=== PATIENT | female | born 1965 | race Caucasian/White ===

== ENCOUNTER → 2020-09-28 11:10 | Outpatient (BNVA) | payer BC, SELFPAY | PROVIDERS: Family Provider Family Medicine; PCP Family Medicine; Visit Provider Nurse Practitioner | DX: M25.572 Pain in left ankle and joints of left foot (principal) | CPT/HCPCS: 73610; 73630 ==

== ENCOUNTER → 2020-10-02 09:50 | Outpatient (BNVA) | payer BC, SELFPAY | PROVIDERS: Family Provider Family Medicine; PCP Family Medicine; Visit Provider Family Medicine | DX: Z00.00 Encounter for general adult medical examination without abnormal findings (principal) | CPT/HCPCS: 80053; 85025 ==

== ENCOUNTER 2021-02-21 16:24 | Emergency (ER) | payer OTHER, SELFPAY ==
[2021-02-21 17:24] VITALS: BP 156/104; PULSE 61; RESP 14; TEMP 36.3; O2SAT 98; BMI 29.6
--- NOTE | 2021-02-21 17:42 | ED_ITS ---
HPI - Fall General: Chief Complaint: Fall Stated Complaint: FALL, ANKLE/KNEE/NOSE PAIN Time Seen by Provider: 02/21/21 17:42 History of Present Illness: HPI Narrative: Patient is a 55-year-old female comes to the ED after a fall injury. Patient was walking around the parking lot and tripped falling forward. She says her forehead and nose area hit the pavement. She denies any loss of consciousness. She does have an abrasion on the bridge of her nose. She has some left ankle pain after having a fall as well. She also reports having a superficial abrasion to her right knee after fall but she is still able to ambulate on right knee with no pain. Patient says she has not had a tetanus in over 10 years and would like to get it updated dose today. Associated symptoms-after fall: Denies abdominal pain, chest pain, headache(s), hematuria or neck pain Review of Systems Const: Denies: fever(s), chills or fatigue Eyes: Denies: change in vision or eye discomfort ENMT: Reports: sinus pain (nasal area pain); Denies: throat pain, odynophagia, nasal discharge or nasal congestion Card: Denies: chest pain, palpitations, edema, swelling of feet/ankles, dyspnea on exertion or orthopnea Resp: Denies: dyspnea, productive cough or non-productive cough GI: Denies: abdominal pain, nausea, vomiting, diarrhea, constipation or hematochezia : Denies: flank pain, dysuria or hematuria Musc: Reports: extremity pain (left ankle) and extremity swelling (left ankle); Denies: neck pain or back pain Skin/Breast: Reports: new lesions (abrasion on bridge of nose and right knee); Denies: rash Neuro: Denies: headache(s), numbness in extremities or weakness in extremities PFS ED PFSH: Medical History Anxiety Anxiety disorder Hypertension Social History Smoking and tobacco status: current every day smoker Alcohol intake: never Physical Exam Const: COMMON NORMALS: no acute distress, patient oriented x3, healthy appeari ng and alert GENERAL APPEARANCE: cooperative and comfortable HENMT: COMMON NORMALS: normocephalic HEAD & SCALP: normocephalic; no Araujo's sign and no raccoon eyes NOSE: No nasal discharge present and Abnormal external nose present nasal tenderness and nasal abrasion (On bridge of nose) MOUTH: Normal oral and palatal mucosa present THROAT: posterior oropharynx normal and uvula midline Eye: COMMON NORMALS: Equal, round and reactive pupils present, EOMs intact bilaterally and conjunctivae normal CONJUNCTIVA: Yes conjunctivae normal PUPIL: Yes Equal, round and reactive pupils present Neck/C-Spine: COMMON NORMALS: supple GENERAL: Yes normal visual inspection Resp: COMMON NORMALS: normal respiratory effort, No retractions, No use of accessory muscles and clear to auscultation bilaterally AUSCULTATION: clear to auscultation bilaterally Cardio: COMMON NORMALS: regular rate, regular rhythm, S1 normal heart sound present, S2 normal heart sound present, No gallops present (Cardio), No clicks present (Cardio), No murmurs present (Cardio) and Peripheral pulses 2+ throughout RATE: regular rate RHYTHM: regular rhythm HEART SOUNDS: S1 normal heart sound present and S2 normal heart sound present PERIPHERAL PULSES: Peripheral pulses 2+ throughout GI: COMMON NORMALS: Normal to inspection, nondistended, normoactive bowel sounds present, Soft to palpation, non-tender and no masses PALPATION: Yes Soft to palpation : COMMON NORMALS: Yes no CVA tenderness BLADDER/KIDNEY EXAM: Yes no CVA tenderness Back/Pelvis: COMMON NORMALS: no CVA tenderness Extremity: NARRATIVE EXTREMITY EXAM: Patient has superficial abrasions to right knee. GENERAL: Yes normal exam except as noted LEFT LOWER EXTREMITY: Yes ankle joint Left ankle: Yes inspection (No visible deformity, swelling noted.), Yes palpation (Tenderness over anterior aspect of lateral malleolus.), Yes ROM (Limited due to pain) and Yes neurovascular exam (Intact) Neuro: COMMON NORMALS: patient oriented x3, CN's II-XII intact bilaterally, moves all extremities, no focal motor deficits and no sensory deficits noted SENSORIUM/ORIENTATION: Yes alert SENSORY EXAM: Yes extremities (intact) MOTOR EXAM: 5/5 motor strength present throughout Skin: GENERAL SKIN EXAM: dry skin Course Vital Signs: Vital signs: Vital Signs Temperature 97.4 F L 02/21/21 17:24 Pulse Rate 61 02/21/21 17:24 Respiratory Rate 14 02/21/21 17:24 Blood Pressure 156/104 02/21/21 17:24 Pulse Oximetry 98 02/21/21 17:24 MDM - Fall MDM Narrative: Medical decision making narrative: Patient is a 55-year-old female comes to the ED after having a fall. Patient fell off forward and hit her head on pavement. Denies any loss of consciousness or headache. She has a superficial abrasion to bridge of nose, left ankle pain and swelling and superficial abrasion to right knee. She has some mild nasal tenderness. Neuro exam was normal. Patient's left ankle has some swelling and tenderness over the lateral malleolus. Neurovascular tact. Vital stable. CT of head and face showed no acute findings or fractures. Left ankle x-ray showed no acute fractures or findings. Patient was given updated tetanus while here in the ED. Patient diagnosed with a minor head injury sprain and strain of ankle along with abrasions. She was told to follow-up with her PCP in 7 to 10 days for reevaluation. Patient was told to rest, ice and elevate left ankle to help with symptoms. Return to ED precautions given. Patient understood and agreed with plan. Imaging Data^: Other CT: Attestation: I personally reviewed and interpreted this imaging study as follows: Radiologist's impression: [address] [address] [address] Scan Report Signed Patient: Ele Farrell Unit #: [id number] : 1965 Age/Sex: 55 / F ADM Date: 02/21/21 Loc: ER Room/Bed: Attending Dr: Ordering Provider/Ordering MD: Luis Miguel Delgadillo Date of Service: 02/21/21 Procedure(s): CT facial bones wo con* [id number] Accession Number(s): [id number] Report Number: [id number] PROCEDURE INFORMATION: Exam: CT Maxillofacial Without Contrast Exam date and time: 02/21/2021 5:59 PM Age: 55 years old Clinical indication: Injury or trauma; Fall; Work related; Blunt trauma (contusions or hematomas); Cheek bone and forehead and nose; Bilateral; Additional info: Fall with tenderness to bridge of nose TECHNIQUE: Imaging protocol: Computed tomography images of the face without contrast. Radiation optimization: All CT scans at this facility use at least one of these dose optimization techniques: automated exposure control; mA and/or kV adjustment per patient size (includes targeted exams where dose is matched to clinical indication); or iterative reconstruction. COMPARISON: CT head wo con* [id number] 02/21/2021 6:04 PM RADIATION DOSE METRICS: Total DLP (mGy-cm): 663.45 FINDINGS: Orbital cavity: Orbits are normal. Globes are unremarkable. Bones/joints: No acute fracture. Paranasal sinuses: Normal. No air-fluid levels. Soft tissues: Unremarkable. CT/CT facial bones wo con* [id number] IMPRESSION: No acute findings. Radiation Dose CTDIVOL = (mGy): DLP = 663.45 (mGy-cm) Dictated By: Shen Rodriguez MD Signed By: Shen Rodriguez MD Signed Date/Time: 02/21/211830 DD/ 58 CT Head: Attestation: I personally reviewed and interpreted this imaging study as follows: Radiologist's impression: [address] [address] [address] Scan Report Signed Patient: Ele Farrell Unit #: [id number] : 1965 Age/Sex: 55 / F ADM Date: 02/21/21 Loc: ER Room/Bed: Attending Dr: Ordering Provider/Ordering MD: Luis Miguel Delgadillo Date of Service: 02/21/21 Procedure(s): CT head wo con* [id number] Accession Number(s): [id number] Report Number: [id number] PROCEDURE INFORMATION: Exam: CT Head Without Contrast Exam date and time: 02/21/2021 5:59 PM Age: 55 years old Clinical indication: Injury or trauma; Fall; Work related; Blunt trauma (contusions or hematomas); Additional info: Fall and hit head on hard surface, no loc TECHNIQUE: Imaging protocol: Computed tomography of the head without contrast. Radiation optimization: All CT scans at this facility use at least one of these dose optimization techniques: automated exposure control; mA and/or kV adjustment per patient size (includes targeted exams where dose is matched to clinical indication); or iterative reconstruction. COMPARISON: CT head wo con* [id number] 08/11/2014 5:07 AM RADIATION DOSE METRICS: Total DLP (mGy-cm): 662.65 FINDINGS: Brain: Normal. No hemorrhage. Unremarkable white matter. No mass effect. Cerebral ventricles: No ventriculomegaly. Paranasal sinuses: Visualized sinuses are unremarkable. No fluid levels. Mastoid air cells: Visualized mastoid air cells are well aerated. Bones/joints: Unremarkable. No acute fracture. Soft tissues: Unremarkable. CT/CT head wo con* [id number] IMPRESSION: No acute intracranial abnormality. Radiation Dose CTDIVOL = (mGy): DLP = 662.65 (mGy-cm) Dictated By: Shen Rodriguez MD Signed By: Shen Rodriguez MD Signed Date/Time: 02/21/211827 DD/ 58 Xray Ortho: Attestation: I personally reviewed and interpreted this imaging study as foll ows: Radiologist's impression: [address] [address] XRay Report Signed Patient: Ele Farrell Unit #: [id number] : 1965 Age/Sex: 55 / F ADM Date: 02/21/21 Loc: ER Room/Bed: Attending Dr: Ordering Provider/Ordering MD: Luis Miguel Delgadillo Date of Service: 02/21/21 Procedure(s): XR ankle LT min 3V* [id number] Accession Number(s): [id number] Report Number: [id number] PROCEDURE INFORMATION: Exam: XR Left Ankle Exam date and time: 02/21/2021 5:59 PM Age: 55 years old Clinical indication: Injury or trauma; Fall; Work related; Blunt trauma; Ankle; Left; Additional info: Fall injury with ankle pain TECHNIQUE: Imaging protocol: XR Left ankle. Views: 3 or more views. COMPARISON: No relevant prior studies available. FINDINGS: Bones/joints: Small calcified plantar calcaneal spur. Distal Achilles tendon degenerative calcification. Soft tissues: Normal. XR/XR ankle LT min 3V* [id number] IMPRESSION: 1. Negative for fracture or dislocation 2. Small calcified plantar calcaneal spur. 3. Distal Achilles tendon degenerative calcification. Radiation Dose CTDIVOL = (mGy): DLP = (mGy-cm) Dictated By: Shen Rodriguez MD Signed By: Shen Rodriguez MD Signed Date/Time: 02/21/211828 DD/ 58 Discharge Plan Discharge Patient Disposition: Home Clinical Impression: Sprain and strain of ankle, Abrasion Minor head injury Qualifiers: Encounter type: initial encounter Qualified Code(s): S09.90XA - Unspecified injury of head, initial encounter Condition: Stable Prescriptions: No Action metoprolol tartrate 50 mg tablet See Rx Instructions .ROUTE .COMPLEX Qty: 180 RF: 2 lorazepam 0.5 mg tablet 0.5 mg PO BID PRN (Reason: anxiety) 30 Days Qty: 60 RF: 2 lisinopril-hydrochlorothiazide 20-25 mg tablet See Rx Instructions .ROUTE .COMPLEX Qty: 90 RF: 0 lamotrigine 200 mg tablet See Rx Instructions .ROUTE .COMPLEX Qty: 180 RF: 1 Discharge Orders: Discharge ED (Routine); Ordered 02/21/21 Ordered By: Luis Miguel Delgadillo Referrals: Zully Lagos MD [Primary Care Provider] - Discharge Diet: Regular Discharge Activity: Increase activity as tolerated Patient Instructions: Ankle Sprain (DC), Head Injury (ED), Abrasion (ED) Activity Restrictions/Additional Instructions: Follow-up with medical provider as directed in 7 to 10 days reevaluation. Rest, ice and elevate left ankle to help with symptoms. Use crutches at home to help with ambulation for the next couple days then advance weightbearing and activity on left foot as tolerated. Take [id number] ibuprofen or Tylenol for pain. Return to the ER or your medical provider if condition worsens. Please read and understand discharge instructions. Thank you for choosing [facility] for your healthcare needs today. Please realize this is an emergency room and that we are providing you with a medical screening exam and this may not be complete and all inclusive of all the testing and or work up that you may need to determine your ailment or severity of your illness. It is very important that you follow up as instructed or that you return to the Emergency Department should you have concerns or if your condition changes or worsens in any way. Coding Level of Care Code ED Watch Train [employer] for [employer] Fwd Exam Comprehensive
--- NOTE | 2021-02-21 17:59 | XRR_ITS ---
PROCEDURE INFORMATION: Exam: XR Left Ankle Exam date and time: 02/21/2021 5:59 PM Age: 55 years old Clinical indication: Injury or trauma; Fall; Work related; Blunt trauma; Ankle; Left; Additional info: Fall injury with ankle pain TECHNIQUE: Imaging protocol: XR Left ankle. Views: 3 or more views. COMPARISON: No relevant prior studies available. FINDINGS: Bones/joints: Small calcified plantar calcaneal spur. Distal Achilles tendon degenerative calcification. Soft tissues: Normal. XR/XR ankle LT min 3V* [id number] IMPRESSION: 1. Negative for fracture or dislocation 2. Small calcified plantar calcaneal spur. 3. Distal Achilles tendon degenerative calcification. Radiation Dose CTDIVOL = (mGy): DLP = (mGy-cm)
--- NOTE | 2021-02-21 17:59 | CTR_ITS ---
PROCEDURE INFORMATION: Exam: CT Head Without Contrast Exam date and time: 02/21/2021 5:59 PM Age: 55 years old Clinical indication: Injury or trauma; Fall; Work related; Blunt trauma (contusions or hematomas); Additional info: Fall and hit head on hard surface, no loc TECHNIQUE: Imaging protocol: Computed tomography of the head without contrast. Radiation optimization: All CT scans at this facility use at least one of these dose optimization techniques: automated exposure control; mA and/or kV adjustment per patient size (includes targeted exams where dose is matched to clinical indication); or iterative reconstruction. COMPARISON: CT head wo con* [id number] 08/11/2014 5:07 AM RADIATION DOSE METRICS: Total DLP (mGy-cm): 662.65 FINDINGS: Brain: Normal. No hemorrhage. Unremarkable white matter. No mass effect. Cerebral ventricles: No ventriculomegaly. Paranasal sinuses: Visualized sinuses are unremarkable. No fluid levels. Mastoid air cells: Visualized mastoid air cells are well aerated. Bones/joints: Unremarkable. No acute fracture. Soft tissues: Unremarkable. CT/CT head wo con* [id number] IMPRESSION: No acute intracranial abnormality. Radiation Dose CTDIVOL = (mGy): DLP = 662.65 (mGy-cm)
--- NOTE | 2021-02-21 17:59 | CTR_ITS ---
PROCEDURE INFORMATION: Exam: CT Maxillofacial Without Contrast Exam date and time: 02/21/2021 5:59 PM Age: 55 years old Clinical indication: Injury or trauma; Fall; Work related; Blunt trauma (contusions or hematomas); Cheek bone and forehead and nose; Bilateral; Additional info: Fall with tenderness to bridge of nose TECHNIQUE: Imaging protocol: Computed tomography images of the face without contrast. Radiation optimization: All CT scans at this facility use at least one of these dose optimization techniques: automated exposure control; mA and/or kV adjustment per patient size (includes targeted exams where dose is matched to clinical indication); or iterative reconstruction. COMPARISON: CT head wo con* [id number] 02/21/2021 6:04 PM RADIATION DOSE METRICS: Total DLP (mGy-cm): 663.45 FINDINGS: Orbital cavity: Orbits are normal. Globes are unremarkable. Bones/joints: No acute fracture. Paranasal sinuses: Normal. No air-fluid levels. Soft tissues: Unremarkable. CT/CT facial bones wo con* [id number] IMPRESSION: No acute findings. Radiation Dose CTDIVOL = (mGy): DLP = 663.45 (mGy-cm)
[2021-02-21] MEDS: ibuprofen 800 mg tablet PO (18:38)
[2021-02-21] MEDS: tetanus-dipt-pertussis 0.5 mL SDV IM (18:48)
== END 2021-02-21 18:53 | disposition home or self-care (01) ==
PROVIDERS: Emergency Provider Physician Assistant; PCP Family Medicine
DX: S09.90XA Unspecified injury of head, initial encounter (principal); W18.30XA Fall on same level, unspecified, initial encounter
CPT/HCPCS: 70450; 70486; 73610; 90471; 90715; 99283

== ENCOUNTER → 2021-12-09 09:14 | Outpatient (BNVA) | payer OTHER, SELFPAY | PROVIDERS: PCP Family Medicine; Visit Provider Family Medicine | DX: I10 Essential (primary) hypertension (principal) | CPT/HCPCS: 80048 ==

== ENCOUNTER 2022-06-25 10:44 | Emergency (ER) | payer OTHER, SELFPAY ==
[2022-06-25 10:49] VITALS: BP 120/91; PULSE 59; RESP 19; TEMP 36.6; O2SAT 91
--- NOTE | 2022-06-25 11:00 | PC.NURSE ---
SEIZURE PADS APPLIED TO BED RAILS.
--- NOTE | 2022-06-25 11:34 | CT_ITS ---
WS: [id number] CT HEAD NONCONTRAST HISTORY: AMS TECHNIQUE: Contiguous axial imaging performed through the brain in 2.5 mm imaging. Bone and soft tiss ue windows. Sagittal and coronal reformats reviewed. All CT scans at [facility] use at least one of these dose optimization techniques: automated exposure control; mA and/or kV adjustment per pa tient size (includes targeted exams where dose is matched to clinical indication); or iterative recon struction. DLP: 934.94 mGy.cm COMPARISON: 02/21/2021 No acute intracranial hemorrhage, midline shift or mass effect. Mild atrophy and small vessel ischemic disease. No acute infarct. Ventricles: Normal size with no hydrocephalus. No inferior displacement of cerebellar tonsils. Paranasal sinuses: As visualized are clear. Mastoid air cells: Well pneumatized. Calvarium and scalp: Skull is intact with no soft tissue edema or swelling. CT/CT head wo con* [id number] IMPRESSION: 1. No acute intracranial hemorrhage or edema. 2. Stable since 02/21/2021.
--- NOTE | 2022-06-25 11:35 | ED_ITS ---
HPI - Seizure General: Chief Complaint: Seizure Stated Complaint: seizures Time Seen by Provider: 06/25/22 10:57 Source: family (spouse) Mode of arrival: EMS Limitations: no limitations History of Present Illness: HPI Narrative: This patient was transported to the emergency department from her workplace. History is predominantly obtained from the spouse. Patient has a history of having stress seizures for which she takes Ativan periodically and as needed. Reportedly per she was feeling a little anxious and stressed before work and took one of her Ativan's and then proceeded to go to work. While at work reportedly she had 2 episodes of significant tremulousness and she took 2 additional Ativan at work. was then notified and he came to her workplace and brought her to the emergency department. There was no history of loss of bowel or bladder control falls or injury that either preceded or occurred during her episodes. According to the she has these and has had these in the past when she is stressed or anxious. He states she is rece ntly had a viral illness with some vomiting and diarrhea but according to him she stated that she felt well this morning and wanted to go to work. Patient denies any pain at this time. She tells me that she is thirsty and cold. complaint: possible seizure Witnessed: Yes - by Bystander Seizure History: Yes Place: Work Associated symptoms: Deny chest pain, chills, fever(s) or syncope Review of Systems Const: Denies: fever(s) or chills Card: Denies: chest pain, syncope or pre-syncope GI: Reports: vomiting and diarrhea; Denies: abdominal pain Musc: Denies: back pain or extremity pain Neuro: Reports: seizure-like activity; Denies: headache(s), numbness in extremities or weakness in extremities Psych: Reports: anxiety [facility] ED PFSH: Medical History Anxiety Anxiety disorder Hypertension Social History Smoking and tobacco status: current every day smoker Alcohol intake: never Physical Exam Narrative: EXAM NARRATIVE: The patient sleeping but easily aroused. She is aware of her spouse and calls him by name. She will answer questions in 1 or 2 word responses. She does not appear to have any signs of trauma. Const: COMMON NORMALS: no acute distress, average body habitus and alert ORIENTATION/CONSCIOUSNESS: Yes awake and Yes oriented to person HENMT: COMMON NORMALS: normocephalic, Normal nasal mucous membranes and turbinates present, moist oral mucous membranes, oropharynx normal (No evidence of intraoral injury.) and dentition normal HEAD & SCALP: normocephalic FACE & SINUS: normal facial exam and face symmetric NOSE: Normal nasal mucous membranes and turbinates present Eye: COMMON NORMALS: Equal, round and reactive pupils present, EOMs intact bilaterally and conjunctivae normal CONJUNCTIVA: Yes conjunctivae normal PUPIL: Yes Equal, round and reactive pupils present Neck/C-Spine: COMMON NORMALS: full ROM, no lymphadenopathy, no meningeal signs and No carotid bruits Chest: COMMONS NORMALS: normal inspection of the chest Resp: COMMON NORMALS: normal respiratory effort, No retractions, No use of accessory muscles and clear to auscultation bilaterally AUSCULTATION: clear to auscultation bilaterally Cardio: COMMON NORMALS: regular rate, regular rhythm, No murmurs present (Cardio) and Peripheral pulses 2+ throughout RATE: regular rate RHYTHM: regular rhythm PERIPHERAL PULSES: Peripheral pulses 2+ throughout GI: COMMON NORMALS: Normal to inspection, nondistended, normoactive bowel sounds present and Soft to palpation PALPATION: Yes Soft to palpation : COMMON NORMALS: Yes no CVA tenderness BLADDER/KIDNEY EXAM: Yes no CVA tenderness Back/Pelvis: COMMON NORMALS: no CVA tenderness, thoracic and lumbar spine normal to inspection and no thoracic nor lumbar tenderness Extremity: COMMON NORMALS: normal to inspection, full ROM, capillary refill normal, no calf tenderness and no pedal edema Neuro: FELICIANO COMA SCALE: document GCS findings Feliciano coma scale eye opening: To sound Feliciano coma scale verbal response: Orientated Feliciano coma scale motor response: Obey commands Feliciano coma scale total score: 14 COMMON NORMALS: moves all extremities (She has displays poor effort) and no sensory deficits noted SENSORIUM/ORIENTATION: Yes alert and Yes oriented to person MENINGEAL SIGNS: Yes no meningeal signs Course Reevaluation(s): Reevaluation #1: Patient is now much more alert. She is moving well and moving all extremities with no evidence of diminished effort. She is drinking fluids and communicating in a full and normal voice. Time: 13:12 Reevaluation #2: Repeat examination reveals to be interacting well with her spouse and otherwise no new or focal findings. She desires to be discharged from the hospital at this time. I think this is reasonable plan. Her is very comfortable and again reiterates that this is very similar to episodes that she is experienced in the past. Her mildly low potassium level was repleted while in the emergency department. No evidence of arrhythmias or other concerning findings during her monitoring here. Time: 13:47 Vital Signs: Vital signs: Vital Signs Temperature 97.8 F 06/25/22 10:49 Pulse Rate 59 L 06/25/22 11:39 Respiratory Rate 16 06/25/22 13:27 Blood Pressure 127/77 06/25/22 13:27 Pulse Oximetry 98 06/25/22 13:27 Oxygen Delivery Me thod 06/25/22 11:39 Oxygen Flow Rate 1 06/25/22 11:39 MDM - Seizure MDM Narrative Medical decision making narrative: This patient was transported to the emergency department by her . She apparently has a history of anxiety disorder and what has been given the name of stress seizures by someone in her past whether it was a healthcare clinician or her family etc. its unknown. She apparently had a recent GI viral illness that had improved and returned back to work and apparently had not episode that prompted her to take 1 Ativan prior to work and then 2 Ativan's during work. This was noted to be associated or preceded by one of her stress seizures. She was more tired and less responsive after these 3 doses of Ativan and her subsequently brought her to the emergency department. While in the emergency department she was evaluated to include a nonfocal clinical examination and as well as other additional monitoring and ancillary studies to establish that there was no evidence of arrhythmia, head injury, stroke, noncontrolled seizures etc. Her evaluation in the emergency department is very reassuring. She received IV fluids, continue cardiac monitoring and reevaluation. She steadily improved while in the emergency department and achieved clinical picture which was consistent with her baseline according to her spouse. No evidence of any ongoing emergency medical condition as noted. My gestalt at this point is that she has a chronic anxiety disorder and gets episodes of anxiety which may trigger some of her physical responses but certainly does not sound like she has a generalized seizure disorder based upon my limited evaluation and review of her history. Nonetheless she is clinically stable and desires to be discharged and we will do so with good return precautions. Lab Data 06/25/22 10:50 06/25/22 10:50 Labs: Radiology Impressions Head CT 06/25/22 11:34 IMPRESSION: 1. No acute intracranial hemorrhage or edema. 2. Stable since 02/21/2021. Laboratory Results WBC 7.7 10^3/uL (4.0-10.0) 06/25/22 10:50 RBC 4.70 10^6/uL (4.1-5.3) 06/25/22 10:50 Hgb 14.0 g/dL (11.5-15.3) 06/25/22 10:50 Hct 42.0 % (37.0-47.0) 06/25/22 10:50 MCV 89.4 fl (81-99) 06/25/22 10:50 MCH 29.8 pg (28.0-34.0) 06/25/22 10:50 MCHC 33.3 g/dL (30.0-36.0) 06/25/22 10:50 RDW 13.0 % (12.1-15.1) 06/25/22 10:50 Plt Count 286 10^3/cmm (130-400) 06/25/22 10:50 MPV 10.9 fL (7.4-10.4) H 06/25/22 10:50 Neut % (Auto) 59.2 % 06/25/22 10:50 Lymph % (Auto) 31.2 % 06/25/22 10:50 Turner % (Auto) 6.1 % 06/25/22 10:50 Eos % (Auto) 2.2 % 06/25/22 10:50 Baso % (Auto) 0.9 % 06/25/22 10:50 Neut # (Auto) 4.54 10^3/uL (1.8-7.7) 06/25/22 10:50 Lymph # (Auto) 2.4 10^3/uL (0.8-4.8) 06/25/22 10:50 Turner # (Auto) 0.5 10^3/uL (0.2-0.9) 06/25/22 10:50 Eos # (Auto) 0.2 10^3/uL (0.0-0.8) 06/25/22 10:50 Baso # (Auto) 0.1 10^3/uL (0.0-0.1) 06/25/22 10:50 Nucleated RBC % (auto) 0 % 06/25/22 10:50 Nucleated RBCs # 0.0 /100WBC 06/25/22 10:50 Sodium 138 mmol/L (136-145) 06/25/22 10:50 Potassium 3.3 mmol/L (3.5-5.1) L 06/25/22 10:50 Chloride 100 mmol/L (98-107) 06/25/22 10:50 Carbon Dioxide 22 mmol/L (22-29) 06/25/22 10:50 Anion Gap 19.3 (5-19) H 06/25/22 10:50 BUN 24 mg/dL (6-20) H 06/25/22 10:50 Creatinine 1.2 mg/dL (0.5-0.9) H 06/25/22 10:50 GFR Calculation 46.8 mL/min (90-130) L 06/25/22 10:50 Glucose 130 mg/dL (65-115) H 06/25/22 10:50 POC Glucose 180 mg/dL (70-110) H 06/25/22 11:51 Calculated Osmolality 292 mOsm/kg (285-295) 06/25/22 10:50 Calcium 10.1 mg/dL (8.5-10.5) 06/25/22 10:50 Total Bilirubin 0.4 mg/dL (0.15-1.2) 06/25/22 10:50 AST 15 U/L (0-32) 06/25/22 10:50 ALT 14 U/L (0-33) 06/25/22 10:50 Alkaline Phosphatase 98 U/L (35-105) 06/25/22 10:50 Total Protein 7.8 g/dL (6.6-8.7) 06/25/22 10:50 Albumin 4.5 g/dL (3.5-5.2) 06/25/22 10:50 Globulin 3.3 g/dL (1.3-4.6) 06/25/22 10:50 EKG Data EKG 1: Attestation: I personally reviewed and interpreted this EKG as follows: Interpretation: Contemporaneous review of the EKG reveals a sinus bradycardia 58 bpm. Prolonged VA interval, QRS duration, corrected QTc interval. Consistent with first-degree AV block. Discharge Plan Discharge Patient Disposition: Home Clinical Impression: Anxiety disorder Condition: Stable Prescriptions: No Action lorazepam 0.5 mg tablet 0.5 mg PO BID PRN (Reason: anxiety) 30 Days Qty: 60 4RF lamotrigine 200 mg tablet 200 mg PO BID metoprolol tartrate 50 mg tablet 50 mg PO BID lisinopril-hydrochlorothiazide 20-25 mg tablet 1 tab PO DAILY Discharge Orders: Discharge ED (Routine); Ordered 06/25/22 Ordered By: Rey Galloway Referrals: Zully Lagos MD [Primary Care Provider] - Discharge Diet: Usual diet Discharge Activity: Increase activity as tolerated Patient Instructions: Opioid Safety, Pain Management Activity Restrictions/Additional Instructions: Continue your usual medications. Advance to a regular diet as soon as possible. Make sure you are drinking at least 1 to 2 quarts of water daily. If you develop any new, worsening or other concerning symptoms you are welcome to return to the emergency department anytime otherwise follow-up with your primary care doctor. Stand Alone Forms: Work/School Release Coding Level of Care Code ED Placement Coordinator for Grant Restrepo
[2022-06-25 11:39] VITALS: BP 113/76; PULSE 59; RESP 15; O2SAT 93
[2022-06-25 11:44] LABS: Basophils # 0.1 10^3/uL (0.0-0.1); Basophils % 0.9 %; Eosinophils # 0.2 10^3/uL (0.0-0.8); Eosinophils % 2.2 %; Lymphocytes # 2.4 10^3/uL (0.8-4.8); Lymphocytes % 31.2 %; Mean Corpuscular HGB Conc 33.3 g/dL (30.0-36.0); Mean Corpuscular Hemoglobin 29.8 pg (28.0-34.0); Mean Corpuscular Volume 89.4 fl (81-99); Mean Platelet Volume 10.9 fL (7.4-10.4); Monocytes # 0.5 10^3/uL (0.2-0.9); Monocytes % 6.1 %; Neutrophils # 4.54 10^3/uL (1.8-7.7); Neutrophils % 59.2 %; Nucleated Red Blood Cells % 0 %; Platelet Count 286 10^3/cmm (130-400); White Blood Count 7.7 10^3/uL (4.0-10.0)
--- NOTE | 2022-06-25 11:49 | ECG_ITS ---
[facility] Test Date: 2022-06-25 Pat Name: Ele Farrell Department: Room: Gender: Female Blueprint Reproducer: : 1965 Requested By: Rey Galloway Order Number: [id number] Nacho MD: Jing Gordon M.D. Measurements Intervals [place] Rate: 58 P: 66 FL: 220 QRS: 90 QRSD: 97 T: 70 QT: 439 QTc: 433 Interpretive Statements SINUS BRADYCARDIA WITH FIRST DEGREE AV BLOCK POSSIBLE LEFT ATRIAL ENLARGEMENT [-0.1mV P-WAVE IN V1/V2] Compared to ECG 08/11/2014 05:19:36 First degree AV block now present Sinus rhythm no longer present Electronically Signed On 06-25-2022 14:26:09 NEUROSCIENTIST by Jing Gordon M.D. [email or web address] ([id number]
[2022-06-25 11:55] LABS: Glucose Point of Care 180 mg/dL (70-110)
[2022-06-25 12:07] LABS: Alanine Aminotransferase 14 U/L (0-33); Albumin Level 4.5 g/dL (3.5-5.2); Alkaline Phosphatase 98 U/L (35-105); Anion Gap 19.3 (5-19); Aspartate Amino Transferase 15 U/L (0-32); Blood Urea Nitrogen 24 mg/dL (6-20); Calcium 10.1 mg/dL (8.5-10.5); Carbon Dioxide 22 mmol/L (22-29); Chloride 100 mmol/L (98-107); Globulin 3.3 g/dL (1.3-4.6); Glomerular Filtration Rate 46.8 mL/min (90-130); Glucose 130 mg/dL (65-115); Osmolality Calculated 292 mOsm/kg (285-295); Potassium 3.3 mmol/L (3.5-5.1); Sodium 138 mmol/L (136-145); Total Bilirubin 0.4 mg/dL (0.15-1.2); Total Protein 7.8 g/dL (6.6-8.7)
[2022-06-25] MEDS: potassium chloride ER 20 mEq Tablet PO (13:25)
[2022-06-25 13:27] VITALS: BP 127/77; RESP 16; O2SAT 98
[2022-06-25 14:08] VITALS: BP 121/77; PULSE 61; O2SAT 95
== END 2022-06-25 14:09 | disposition home or self-care (01) ==
PROVIDERS: Emergency Provider Emergency Medicine; PCP Family Medicine
DX: F41.9 Anxiety disorder, unspecified (principal); I10 Essential (primary) hypertension; F17.210 Nicotine dependence, cigarettes, uncomplicated
CPT/HCPCS: 36416; 70450; 80053; 82962; 85025; 93005; 99285

== ENCOUNTER → 2022-12-24 11:10 | Outpatient (BNVA) | payer OTHER, SELFPAY | PROVIDERS: PCP Family Medicine; Visit Provider Nurse Practitioner Family | DX: J06.9 Acute upper respiratory infection, unspecified (principal) | CPT/HCPCS: 87426 ==

== ENCOUNTER 2023-01-01 12:16 | Emergency (ER) | payer OTHER, SELFPAY ==
[2023-01-01] VITALS (26 sets, daily range): BP systolic 125–148; BP diastolic 82–101; PULSE 56–64; RESP 12–20; TEMP 36.7; O2SAT 89–95; BMI 28.9
--- NOTE | 2023-01-01 12:35 | ECG_ITS ---
[facility] Test Date: 2023-01-01 Pat Name: Ele Farrell Department: Room: Gender: Female Chargeback Analyst: : 1965 Requested By: Ellie Barriga Order Number: [id number] Nacho MD: Jing Gordon M.D. Measurements Intervals [place] Rate: 62 P: 47 NM: 213 QRS: 78 QRSD: 92 T: 56 QT: 432 QTc: 440 Interpretive Statements SINUS RHYTHM WITH FIRST DEGREE AV BLOCK POSSIBLE LEFT ATRIAL ENLARGEMENT [-0.1mV P-WAVE IN V1/V2] Compared to ECG 06/25/2022 11:49:13 Sinus bradycardia no longer present Electronically Signed On 01-01-2023 21:23:37 CDT by Jing Gordon M.D. [id number]
[2023-01-01 12:41] LABS: Basophils # 0.1 10^3/uL (0.0-0.1); Basophils % 0.5 %; Eosinophils # 0.2 10^3/uL (0.0-0.8); Eosinophils % 2.2 %; Hematocrit 41.4 % (36-47); Lymphocytes # 2.1 10^3/uL (0.8-4.8); Lymphocytes % 21.5 %; Mean Corpuscular HGB Conc 32.9 g/dL (30-55); Mean Corpuscular Hemoglobin 29.7 pg (27-33); Mean Corpuscular Volume 90.4 fl (85-98); Mean Platelet Volume 10.2 fL (7.4-10.4); Monocytes # 0.4 10^3/uL (0.2-0.9); Monocytes % 3.8 %; Neutrophils % 71.7 %; Nucleated Red Blood Cells % 0 %; Platelet Count 342 10^3/cmm (157-399); Red Blood Count 4.58 10^6/uL (3.85-5.65); White Blood Count 9.63 10^3/uL (3.29-11.43)
--- NOTE | 2023-01-01 12:42 | W.ED.SEIZURE ---
HPI - Seizure General: Chief Complaint: Seizure Stated Complaint: seizure like activity Time Seen by Provider: 01/01/23 12:21 Source: patient and EMS Mode of arrival: EMS Limitations: no limitations History of Present Illness: HPI Narrative: 57-year-old female has a history of seizure disorders along with bipolar she is on Lamictal patient had a possible seizure today lasting a short time had some mild postictal here she will open her eyes and answer questions but then will go back to sleep she denies any headache did not hit her head she has been seen here in the past for her seizures had normal head CT and work-up in the past Seizure History: Yes Associated symptoms: Deny chest pain, chills or fever(s) Review of Systems Const: Denies: fever(s) or chills ENMT: Denies: throat pain or dental pain Card: Denies: chest pain Resp: Denies: dyspnea GI: Denies: abdominal pain, nausea, vomiting or diarrhea Musc: Denies: neck pain or back pain Skin/Breast: Denies: rash Neuro: Reports: seizure-like activity; Denies: headache(s) PFSH ED PFSH: Medical History Anxiety Anxiety disorder Hypertension Social History Smoking and tobacco status: current every day smoker Alcohol intake: never Substance/Drug Use: never Physical Exam Const: COMMON NORMALS: no acute distress, patient oriented x3 and healthy appearing HENMT: COMMON NORMALS: normocephalic and atraumatic HEAD & SCALP: normocephalic and atraumatic Eye: COMMON NORMALS: Equal, round and reactive pupils present and EOMs intact bilaterally PUPIL: Yes Equal, round and reactive pupils present Neck/C-Spine: COMMON NORMALS: full ROM and supple Chest: COMMONS NORMALS: normal inspection of the chest and normal palpation of entire chest wall Resp: COMMON NORMALS: normal respiratory effort, No retractions, No use of accessory muscles and clear to auscultation bilaterally AUSCULTATION: clear to auscultation bilaterally Cardio: COMMON NORMALS: regular rate, regular rhythm and No murmurs present (Cardio) RATE: regular rate RHYTHM: regular rhythm GI: COMMON NORMALS: Normal to inspection, nondistended, normoactive bowel sounds present, Soft to palpation, non-tender and no masses PALPATION: Yes Soft to palpation Extremity: COMMON NORMALS: normal to inspection and full ROM Neuro: COMMON NORMALS: patient oriented x3, moves all extremities and no focal motor deficits Psych: COMMON NORMALS: mental status grossly normal, Normal thought process present and cooperative THOUGHT PROCESS: Normal thought process present Skin: COMMON NORMALS: no rashes or lesions noted and no wounds GENERAL SKIN EXAM: no rashes or lesions noted Course Vital Signs: Vital signs: Vital Signs Temperature 98.0 F 01/01/23 12:23 Pulse Rate 62 01/01/23 14:15 Respiratory Rate 16 01/01/23 14:15 Blood Pressure 130/90 01/01/23 14:25 Pulse Oximetry 91 01/01/23 14:15 Oxygen Delivery Me thod Room Air 01/01/23 14:00 Oxygen Flow Rate 2 01/01/23 13:35 MDM - Seizure MDM Narrative Medical decision making narrative: Patient presents here with possible seizure she has been well-appearing here no seizure-like activity blood work here is normal she is already on Lamictal get her follow-up with neurology she was return if worsening. Lab Data 01/01/23 12:26 01/01/23 12:26 Labs: Laboratory Results WBC 9.63 10^3/uL (3.29-11.43) 01/01/23 12:26 RBC 4.58 10^6/uL (3.85-5.65) 01/01/23 12:26 Hgb 13.60 g/dL (11.27-16.99) 01/01/23 12:26 Hct 41.4 % (36-47) 01/01/23 12:26 MCV 90.4 fl (85-98) 01/01/23 12:26 MCH 29.7 pg (27-33) 01/01/23 12:26 MCHC 32.9 g/dL (30-55) 01/01/23 12:26 RDW 14.0 % (12.1-15.1) 01/01/23 12:26 Plt Count 342 10^3/cmm (157-399) 01/01/23 12:26 MPV 10.2 fL (7.4-10.4) 01/01/23 12:26 Neut % (Auto) 71.7 % 01/01/23 12:26 Lymph % (Auto) 21.5 % 01/01/23 12:26 Henry % (Auto) 3.8 % 01/01/23 12:26 Eos % (Auto) 2.2 % 01/01/23 12:26 Baso % (Auto) 0.5 % 01/01/23 12:26 Neut # (Auto) 6.90 10^3/uL (1.8-7.7) 01/01/23 12:26 Lymph # (Auto) 2.1 10^3/uL (0.8-4.8) 01/01/23 12:26 Henry # (Auto) 0.4 10^3/uL (0.2-0.9) 01/01/23 12:26 Eos # (Auto) 0.2 10^3/uL (0.0-0.8) 01/01/23 12:26 Baso # (Auto) 0.1 10^3/uL (0.0-0.1) 01/01/23 12:26 Nucleated RBC % (auto) 0 % 01/01/23 12:26 Nucleated RBCs # 0.0 /100WBC 01/01/23 12:26 Sodium 138 mmol/L (136-145) 01/01/23 12:26 Potassium 3.5 mmol/L (3.5-5.1) 01/01/23 12:26 Chloride 101 mmol/L (98-107) 01/01/23 12:26 Carbon Dioxide 23 mmol/L (22-29) 01/01/23 12:26 Anion Gap 17.5 (5-19) 01/01/23 12:26 BUN 13 mg/dL (6-20) 01/01/23 12:26 Creatinine 0.8 mg/dL (0.5-0.9) 01/01/23 12:26 GFR Calculation 74.5 mL/min (90-130) L 01/01/23 12:26 Glucose 150 mg/dL (65-115) H 01/01/23 12:26 Calculated Osmolality 289 mOsm/kg (285-295) 01/01/23 12:26 Calcium 9.5 mg/dL (8.5-10.5) 01/01/23 12:26 Total Bilirubin 0.4 mg/dL (0.15-1.2) 01/01/23 12:26 AST 11 U/L (0-32) 01/01/23 12:26 ALT 12 U/L (0-33) 01/01/23 12:26 Alkaline Phosphatase 95 U/L (35-105) 01/01/23 12:26 Total Protein 7.9 g/dL (6.6-8.7) 01/01/23 12:26 Albumin 4.5 g/dL (3.5-5.2) 01/01/23 12:26 Globulin 3.4 g/dL (1.3-4.6) 01/01/23 12:26 EKG Data EKG 1: Attestation: I personally reviewed and interpreted this EKG as follows: EKG interpretation date: 01/01/23 EKG interpretation time: 12:40 Interpretation: nsr hr [address] or twave abnormalities qrs 92 qtc 437 Discharge Plan Discharge Patient Disposition: Home Clinical Impression: Generalized seizure Condition: Stable Prescriptions: No Action lorazepam 0.5 mg tablet 0.5 mg PO BID PRN (Reason: anxiety) 30 Days Qty: 60 4RF lamotrigine 200 mg tablet 200 mg PO BID metoprolol tartrate 50 mg tablet 50 mg PO BID lisinopril-hydrochlorothiazide 20-25 mg tablet 1 tab PO DAILY Discharge Orders: Discharge ED (Routine); Ordered 01/01/23 Ordered By: Ellie Barriga Referrals: Sarah Araya MD [Physician] - 1-3 days Zully Lagos MD [Primary Care Provider] - Discharge Diet: Advance as tolerated Discharge Activity: Resume usual activity Patient Instructions: Recurrent Seizures in Adults (ED) Stand Alone Forms: Work/School Release Coding Level of Care Code ED Manager Clinical Applications for Chg Kyae
[2023-01-01 12:58] LABS: Alanine Aminotransferase 12 U/L (0-33); Albumin Level 4.5 g/dL (3.5-5.2); Alkaline Phosphatase 95 U/L (35-105); Anion Gap 17.5 (5-19); Aspartate Amino Transferase 11 U/L (0-32); Blood Urea Nitrogen 13 mg/dL (6-20); Calcium 9.5 mg/dL (8.5-10.5); Carbon Dioxide 23 mmol/L (22-29); Chloride 101 mmol/L (98-107); Globulin 3.4 g/dL (1.3-4.6); Glomerular Filtration Rate 74.5 mL/min (90-130); Glucose 150 mg/dL (65-115); Osmolality Calculated 289 mOsm/kg (285-295); Potassium 3.5 mmol/L (3.5-5.1); Sodium 138 mmol/L (136-145); Total Bilirubin 0.4 mg/dL (0.15-1.2); Total Protein 7.9 g/dL (6.6-8.7)
--- NOTE | 2023-01-01 13:16 | CT_ITS ---
WS: [id number] CT HEAD TECHNIQUE: Noncontrast CT of the head obtained from the skullbase to the vertex. CLINICAL INFORMATION: seizure COMPARISON: CT 06/25/2022 DLP: 976.[address] scans at [facility] use at least one of these dose optimization techniques: automated e xposure control; mA and/or kV adjustment per patient size (includes targeted exams where dose is matc hed to clinical indication); or iterative reconstruction. FINDINGS: No evidence of intracranial hemorrhage or mass effect. Ventricular system and basal cisterns are geiger nt. Mild small vessel changes with mild parenchymal volume loss. No extra-axial fluid collections. No evidence of mass or mass effect. Mild cavernous carotid calcification. Mild inflammatory changes in the partially visualized paranasal sinuses. Mild mucosal thickening in t he LEFT mastoid air cells. IMPRESSION: 1. No evidence of intracranial hemorrhage or mass effect. 2. Mild small vessel changes. Mild parenchymal volume loss. 3. No acute intracranial findings and no change since 06/25/2022.
[2023-01-01] MEDS: ketorolac 30 mg/mL INJ 15 MG IVP (13:41)
--- NOTE | 2023-01-02 09:10 | DCPLANNER ---
housing case manager had message to schedule a follow up appointment for patient with urology. housing case manager sent patients information to the front office staff at neurology. Patients information will be printed and reviewed. Clinic will call patient with appointment information.
== END 2023-01-01 14:29 | disposition home or self-care (01) ==
PROVIDERS: Emergency Provider Emergency Medicine; PCP Family Medicine
DX: G40.409 Other generalized epilepsy and epileptic syndromes, not intractable, without status epilepticus (principal); I10 Essential (primary) hypertension; F17.210 Nicotine dependence, cigarettes, uncomplicated
CPT/HCPCS: 70450; 80053; 85025; 93005; 96374; 99285; J1885

== ENCOUNTER → 2023-01-13 08:48 | Outpatient (BNVA) | payer OTHER, SELFPAY | PROVIDERS: PCP Family Medicine; Visit Provider Family Medicine | DX: Z87.898 Personal history of other specified conditions (principal); I10 Essential (primary) hypertension | CPT/HCPCS: 80175 ==

== ENCOUNTER 2023-04-14 07:38 | Outpatient (CLI) | payer OTHER, SELFPAY ==
--- NOTE | 2023-04-14 08:00 | MR_ITS ---
WS: [id number] MRI BRAIN WITH AND WITHOUT CONTRAST HISTORY: Z87.898 - Personal history of other specified conditions COMPARISON: CT head 01/01/2023 TECHNIQUE: Multiplanar imaging performed through the brain with and without contrast. No acute infarcts are seen. Gasca-white matter differentiation is well preserved. Mild scattered T2 an d FLAIR signal hyperintensities in the periventricular white matter and extending above the lateral v entricles. Normal hippocampal formations. No prior infarct. No susceptibility artifacts or prior lacunar infarcts. Ventricles and extra-axial spaces are normal. Clivus and pituitary gland are normal. Visualized posterior fossa and brainstem are also normal. Postcontrast images are negative for masses or vascular malformations. Small caliber more absent dist al RIGHT vertebral artery. Dominant LEFT vertebral artery. Dural venous sinuses are normal. Paranasal sinuses: Well aerated with no significant disease. Mastoid air cells: Normal. Calvarium and scalp: Normal. IMPRESSION: 1. No acute infarct and no hemorrhage. 2. Mild small vessel ischemic type changes. 3. No prior infarct. 4. No enhancing masses or vascular malformations.
[2023-04-14] MEDS: gadobenate dimeglumine 20 mL vial IV (08:29)
== END 2023-04-14 07:39 | disposition home or self-care (01) ==
LOC: RAD 07:38
PROVIDERS: PCP Family Medicine; Visit Provider Psychiatry & Neurology Neurology
DX: Z87.898 Personal history of other specified conditions (principal); I67.82 Cerebral ischemia
CPT/HCPCS: 70553; A9577